=== PATIENT | female | born 1985 | race African-American/Black ===

== ENCOUNTER 2018-08-27 13:13 | Inpatient (IN) | payer SELFPAY ==
--- NOTE | 2018-08-27 13:40 | ER Document Report ---
ED Medical Screen (RME) - General Chief Complaint: Shortness Of Breath Stated Complaint: SHORTNESS OF BREATH Time Seen by Provider: 08/27/18 13:36 Notes: 32-year-old female patient reports having upper respiratory tract infection about 2-1/2 weeks ago. She is much better from that but does have a little bit of continued cough. She reports for the past week she has been having some exertional shortness of breath which is getting worse. Today she noted after walking that her heart rate went to 130. I have greeted and performed a rapid initial assessment of this patient. A comprehensive ED assessment and evaluation of the patient, analysis of test results and completion of the medical decision making process will be conducted by additional ED providers. TRAVEL OUTSIDE OF THE [place] IN LAST 30 DAYS: No - Related Data Allergies/Adverse Reactions: No Known Drug Allergies Allergy (Verified 08/27/18 13:15) Past Medical History - Social History Chew tobacco use (# tins/day): No Frequency of alcohol use: Social Drug Abuse: None Renal/ Medical History: Denies: Hx Peritoneal Dialysis Physical Exam - Vital signs Vitals: Temp Pulse Resp BP Pulse Ox 98.4 F 110 H 20 172/93 H 99 08/27/18 13:31 08/27/18 13:31 08/27/18 13:31 08/27/18 13:31 08/27/18 13:31 Course - Vital Signs Vital signs: Temp Pulse Resp BP Pulse Ox 98.4 F 110 H 20 172/93 H 99 08/27/18 13:31 08/27/18 13:31 08/27/18 13:31 08/27/18 13:31 08/27/18 13:31
--- NOTE | 2018-08-27 14:19 | RADIOLOGY REPORT (SQ) ---
EXAM DESCRIPTION: CHEST 2 VIEWS COMPLETED DATE/TIME: 08/27/2018 2:01 pm REASON FOR STUDY: URI, dyspnea on exertion COMPARISON: None. TECHNIQUE: Frontal and lateral radiographic views of the chest acquired. NUMBER OF VIEWS: Two view. LIMITATIONS: None. FINDINGS: LUNGS AND PLEURA: No opacities, masses or pneumothorax. No pleural effusion. MEDIASTINUM AND HILAR STRUCTURES: No masses or contour abnormalities. HEART AND VASCULAR STRUCTURES: Heart normal size. No evidence for failure. BONES: No acute findings. HARDWARE: None in the chest. OTHER: No other significant finding. IMPRESSION: NO SIGNIFICANT RADIOGRAPHIC FINDING IN THE CHEST. TECHNICAL DOCUMENTATION: JOB ID: [id number] [employer]- All Rights Reserved Reading location - IP/workstation name: [email or web address]
[2018-08-27 14:43] LABS: ABSOLUTE EOSINOPHILS # (AUTO) 0.1 10^3/uL (0.0-0.6); ABSOLUTE LYMPHOCYTES (AUTO) 2.8 10^3/uL (0.5-4.7); ABSOLUTE MONOCYTES (AUTO) 0.7 10^3/uL (0.1-1.4); ABSOLUTE NEUT (AUTO) 3.3 10^3/uL (1.7-8.2); BASOPHILS % (AUTO) 0.6 % (0-2); EOSINOPHILS % (AUTO) 1.6 % (0-6); HEMATOCRIT 40.8 % (36.0-47.0); HEMOGLOBIN 13.3 g/dL (12.0-15.5); LYMPHOCYTES % (AUTO) 40.8 % (13-45); MEAN CORPUSCULAR HEMOGLOBIN 25.3 pg (27.0-33.4); MEAN CORPUSCULAR HGB CONC 32.6 g/dL (32.0-36.0); MEAN CORPUSCULAR VOLUME 78 fl (80-97); MONOCYTES % (AUTO) 9.5 % (3-13); PLATELET COUNT 269 10^3/uL (150-450); RED BLOOD COUNT 5.25 10^6/uL (3.72-5.28); RED CELL DISTRIBUTION WIDTH 15.8 % (11.5-14.0); SEGMENTED NEUTROPHILS % (AUTO) 47.5 % (42-78); TOTAL CELLS COUNTED % (AUTO) 100 %; WHITE BLOOD COUNT 6.9 10^3/uL (4.0-10.5)
[2018-08-27 15:02] LABS: ALANINE AMINOTRANSFERASE 24 U/L (9-52); ALBUMIN 4.1 g/dL (3.5-5.0); ALKALINE PHOSPHATASE 81 U/L (38-126); ANION GAP 12 (5-19); ASPARTATE AMINO TRANSFERASE 24 U/L (14-36); BILIRUBIN,DIRECT 0.3 mg/dL (0.0-0.4); BILIRUBIN,TOTAL 0.4 mg/dL (0.2-1.3); BLOOD UREA NITROGEN 11 mg/dL (7-20); CALCIUM 9.8 mg/dL (8.4-10.2); CARBON DIOXIDE 24 mmol/L (22-30); CHLORIDE 107 mmol/L (98-107); CREATINE KINASE 42 U/L (30-135); GLUCOSE 114 mg/dL (75-110); POTASSIUM 4.2 mmol/L (3.6-5.0); SODIUM 142.9 mmol/L (137-145); TOTAL PROTEIN 8.4 g/dL (6.3-8.2)
[2018-08-27 15:10] LABS: CREATINE KINASE MB 0.34 ng/mL (<4.55)
[2018-08-27 15:11] LABS: TROPONIN I 0.061 ng/mL
[2018-08-27 15:21] LABS: APPEARANCE,URINE SLIGHTLY-CLOUDY; BILIRUBIN,URINE NEGATIVE (NEGATIVE); COLOR,URINE YELLOW; GLUCOSE, URINE NEGATIVE (NEGATIVE); KETONES,URINE NEGATIVE (NEGATIVE); LEUKOCYTE ESTERASE,URINE TRACE (NEGATIVE); NITRITE,URINE NEGATIVE (NEGATIVE); PROTEIN,URINE NEGATIVE (NEGATIVE); URINE SPECIFIC GRAVITY 1.026; UROBILINOGEN,URINE NEGATIVE mg/dL (<2.0)
[2018-08-27] MEDS ORDERED: HEPARIN SOD (PORCINE) 1,000 UNIT/ML 10 ML VIAL IV ONE (15:26)
[2018-08-27] MEDS ORDERED: HEPARIN SODIUM,PORCINE/D5W 25,000 UNIT/250 ML RTUINJ IV PRN (15:26)
--- NOTE | 2018-08-27 15:28 | RADIOLOGY REPORT (SQ) ---
EXAM DESCRIPTION: CTA CHEST COMPLETED DATE/TIME: 08/27/2018 3:19 pm REASON FOR STUDY: evaluate for PE COMPARISON: None. TECHNIQUE: CT scan of the chest performed using helical scanning technique with dynamic intravenous contrast injection. Images reviewed with lung, soft tissue and bone windows. Reconstructed coronal and sagittal MPR images reviewed. Additional 3 dimensional post-processing performed to develop Maximal Intensity Projection images (ME P). All images stored on PACS. All CT scanners at this facility use dose modulation, iterative reconstruction, and/or weight based d osing when appropriate to reduce radiation dose to as low as reasonably achievable (ALARA). [facility]: Dose Right [facility]: CareDose [facility]: Dose Right [facility]: Teradose 4D [facility]: [employer] CONTRAST TYPE AND DOSE: contrast/concentration: Isovue 350.00 mg/ml; Total Contrast Delivered: 89.0 ml; Total Saline Delivered: 92.0 ml Contrast bolus optimized for the pulmonary arteries. Not diagnostic for the aorta. RENAL FUNCTION: None required. The patient is less than 50 years old. RADIATION DOSE: CT Rad equipment meets quality standard of care and radiation dose reduction techniq ues were employed. CTDIvol: 31.2 - 39.7 mGy. DLP: 1156 mGy-cm. . LIMITATIONS: None. FINDINGS: LUNGS AND PLEURA: No masses, infiltrates, or pneumothorax. No pleural effusions or pleura l calcifications. AORTA AND GREAT VESSELS: No aneurysm. Contrast bolus not optimized for the aorta. HEART: No pericardial effusion. No significant coronary artery calcifications. PULMONARY ARTERIES: Filling defects in the 1st degree branches of both lower lobe pulmonary arteries. No central emboli. HILAR AND MEDIASTINAL STRUCTURES: No identified masses or abnormal nodes. HARDWARE: None in the chest. UPPER ABDOMEN: No significant findings. Limited exam. THYROID AND OTHER SOFT TISSUES: No masses. No adenopathy. BONES: No acute or significant finding. 3D MIPS: Confirm above findings. OTHER: No other significant finding. IMPRESSION: Positive for pulmonary emboli bilateral lower lobe pulmonary arteries. COMMENT: Pertinent findings on the imaging study reported as a CRITICAL RESULT to LANCE Rosas DO at15:25 on 08/27/2018. Category of Critical Result: Pulmonary emboli. Quality ID # [id number]: Final reports with documentation of one or more dose reduction techniques (e.g., Au tomated exposure control, adjustment of the mA and/or kV according to patient size, use of iterative reconstruction technique) TECHNICAL DOCUMENTATION: JOB ID: [id number] [employer]- All Rights Reserved Reading location - IP/workstation name: [email or web address]
[2018-08-27] MEDS ORDERED: ONDANSETRON HCL INJ/PF 4 MG/2 ML SDV IV PRN (15:55)
[2018-08-27] MEDS ORDERED: ACETAMINOPHEN 650 MG SUPP.RECT PR PRN (15:55)
[2018-08-27 15:56] LABS: INTERNATIONAL RATION (INR) 0.94; PROTHROMBIN TIME 13.1 SEC (11.4-15.4)
[2018-08-27] MEDS ORDERED: HEPARIN SOD (PORCINE) 1,000 UNIT/ML 10 ML VIAL IV PRN (16:00)
[2018-08-27] MEDS ORDERED: LORAZEPAM 1 MG TABLET PO PRN (16:00)
[2018-08-27] MEDS ORDERED: HYDRALAZINE HCL INJ/PF 20 MG/1 ML SDV IV PRN (16:08)
--- NOTE | 2018-08-27 16:11 | PDOC H&P ---
History of Present Illness Admission Date/PCP: 08/27/2018 Patient complains of: Shortness of breath and palpitations for more than a week History of Present Illness: GT MUÑOZ is a 32 year old female Social History Information Source: Patient Smoking Status: Never Smoker Frequency of Alcohol Use: Occasional Hx Recreational Drug Use: No Hx Prescription Drug Abuse: No - Advance Directive Resuscitation Status: Full Code Family History Parental Family History Reviewed: Yes - Father with hypertension Children Family History Reviewed: Yes Sibling(s) Family History Reviewed.: Yes Medication/Allergy Home Medications: No Home Medications 08/27/18 Allergies/Adverse Reactions: No Known Drug Allergies Allergy (Verified 08/27/18 13:15) Review of Systems Constitutional: PRESENT: weakness. ABSENT: fever(s), headache(s) Eyes: ABSENT: visual disturbances Ears: ABSENT: hearing changes Nose, Mouth, and Throat: ABSENT: sore throat Cardiovascular: PRESENT: palpitations, other - Chest discomfort Respiratory: PRESENT: dyspnea Neurological: PRESENT: dizziness Psychiatric: PRESENT: anxiety Physical Exam Vital Signs: Temp Pulse Resp BP Pulse Ox 98.4 F 110 H 17 161/114 H 100 08/27/18 13:31 08/27/18 13:31 08/27/18 15:01 08/27/18 15:01 08/27/18 15:01 Intake & Output 08/26/18 08/27/18 08/28/18 06:59 06:59 06:59 Weight 124.7 kg General appearance: PRESENT: obese, other - Patient is in moderate distress Head exam: PRESENT: atraumatic Eye exam: PRESENT: PERRLA Mouth exam: PRESENT: moist, tongue midline Neck exam: ABSENT: carotid bruit, JVD, lymphadenopathy, thyromegaly Respiratory exam: PRESENT: clear to auscultation najma, tachypnea. ABSENT: rales, rhonchi, wheezes Cardiovascular exam: PRESENT: tachycardia GI/Abdominal exam: PRESENT: normal bowel sounds, soft. ABSENT: distended, guarding, mass, organolmegaly, rebound, tenderness Extremities exam: PRESENT: full ROM. ABSENT: calf tenderness, clubbing, pedal edema Neurological exam: PRESENT: alert, awake, oriented to person, oriented to place, oriented to time, oriented to situation, CN II-XII grossly intact. ABSENT: motor sensory deficit Psychiatric exam: PRESENT: anxious, appropriate affect, normal mood. ABSENT: homicidal ideation, suicidal ideation Results Laboratory Results: 08/27/18 14:02 08/27/18 14:02 08/27/18 08/27/18 08/27/18 14:02 14:02 14:02 WBC 6.9 RBC 5.25 Hgb 13.3 Hct 40.8 MCV 78 L MCH 25.3 L MCHC 32.6 RDW 15.8 H Plt Count 269 Seg Neutrophils % 47.5 Lymphocytes % 40.8 Monocytes % 9.5 Eosinophils % 1.6 Basophils % 0.6 Absolute Neutrophils 3.3 Absolute Lymphocytes 2.8 Absolute Monocytes 0.7 Absolute Eosinophils 0.1 Absolute Basophils 0.0 Sodium 142.9 Potassium 4.2 Chloride 107 Carbon Dioxide 24 Anion Gap 12 BUN 11 Creatinine 0.70 Est GFR ( Amer) > 60 Est GFR (Non-Af Amer) > 60 Glucose 114 H Calcium 9.8 Total Bilirubin 0.4 AST 24 ALT 24 Alkaline Phosphatase 81 Total Protein 8.4 H Albumin 4.1 Serum HCG, Qual NEGATIVE Urine Color Urine Appearance Urine pH Ur Specific [place] Urine Protein Urine Glucose (UA) Urine Ketones Urine Blood Urine Nitrite Ur Leukocyte Esterase Urine WBC (Auto) Urine RBC (Auto) 08/27/18 15:00 WBC RBC Hgb Hct MCV MCH MCHC RDW Plt Count Seg Neutrophils % Lymphocytes % Monocytes % Eosinophils % Basophils % Absolute Neutrophils Absolute Lymphocytes Absolute Monocytes Absolute Eosinophils Absolute Basophils Sodium Potassium Chloride Carbon Dioxide Anion Gap BUN Creatinine Est GFR ( Amer) Est GFR (Non-Af Amer) Glucose Calcium Total Bilirubin AST ALT Alkaline Phosphatase Total Protein Albumin Serum HCG, Qual Urine Color YELLOW Urine Appearance SLIGHTLY-CLOUDY Urine pH 5.0 Ur Specific [place] 1.026 Urine Protein NEGATIVE Urine Glucose (UA) NEGATIVE Urine Ketones NEGATIVE Urine Blood SMALL H Urine Nitrite NEGATIVE Ur Leukocyte Esterase TRACE H Urine WBC (Auto) 1 Urine RBC (Auto) 2 08/27/18 08/27/18 14:02 14:02 Creatine Kinase 42 CK-MB (CK-2) 0.34 Troponin I 0.061 Impressions: Chest X-Ray 08/27/18 13:39 IMPRESSION: NO SIGNIFICANT RADIOGRAPHIC FINDING IN THE CHEST. Chest/Abdomen CTA 08/27/18 14:59 IMPRESSION: Positive for pulmonary emboli bilateral lower lobe pulmonary arteries. Assessment and Plan - Diagnosis (1) Pulmonary emboli Qualifiers: Chronicity: acute Is this a current diagnosis for this admission?: Yes Plan: 08/27/2018 patient is going to be admitted to [facility] as inpatient plan to start her on Xarelto 20 mg p.o. twice daily. Consultation with Dr. Casas was requested. Placed on oxygen 2 L nasal cannula. Plan to do the DVT studies. Order was placed for lupus anticoagulant and antiphospholipid antibody check. To do the labs tomorrow. Prophylaxis was started. Placed on SCDs. (2) Uncontrolled hypertension Is this a current diagnosis for this admission?: Yes Plan: 08/27/2018 patient's admission blood pressure is 172/90 3 repeat one is 116/1 1 4 with a heart rate of 124. To start her on lisinopril 10 mg daily and put her on hydralazine 10 mg IV every 6 as needed to keep the blood pressure especially systolic less than 150 sorry and diastolic less than 100. (3) Tachycardia Is this a current diagnosis for this admission?: Yes Plan: 08/27/2018 patient's heart rate in the right now is more than [address] her on metoprolol tartrate 50 mg p.o. twice daily and closely monitor the heart rate every 4 hours. Was placed on telemetry. (4) Obesity (BMI 30-39.9) Is this a current diagnosis for this admission?: No Plan: 08/27/2018-patient's BMI is more than 40 diet exercise weight loss lifestyle modifications are discussed with the patient dietary consult was requested.
[2018-08-27] MEDS ORDERED: LISINOPRIL 10 MG TABLET PO ONE (16:15)
--- NOTE | 2018-08-27 16:29 | ER Document Report ---
Entered by ALETHEA CHRISTINE SCRIBE 08/27/18 1527 Acting as scribe for:LANCE BAZAN DO ED General - General Chief Complaint: Shortness Of Breath Stated Complaint: SHORTNESS OF BREATH Time Seen by Provider: 08/27/18 13:36 Mode of Arrival: Ambulatory Information source: Patient Notes: Patient is a 32 year old female presenting to the emergency department co mplaining of shortness of breath onset 2.5 weeks ago. Patient states she was recently diagnosed with an URI and her symptoms from that have been improving however, she continues to have shortness of breath which is exacerbated with on exertion. She also complains of heart palpitations further stating she can feel her heart racing. She denies any recent travels, taking medications or a history of surgeries. Of significance, patient is currently on control. TRAVEL OUTSIDE OF THE [place] IN LAST 30 DAYS: No - Related Data Allergies/Adverse Reactions: No Known Drug Allergies Allergy (Verified 08/27/18 13:15) Past Medical History - General Information source: Patient - Social History Smoking Status: Never Smoker Chew tobacco use (# tins/day): No Frequency of alcohol use: Social Drug Abuse: None Family History: Reviewed & Not Pertinent Patient has suicidal ideation: No Patient has homicidal ideation: No Review of Systems - Review of Systems Constitutional: No symptoms reported EENT: No symptoms reported Cardiovascular: No symptoms reported Respiratory: See HPI Gastrointestinal: No symptoms reported Genitourinary: No symptoms reported Female Genitourinary: No symptoms reported Musculoskeletal: No symptoms reported Skin: No symptoms reported Hematologic/Lymphatic: No symptoms reported Neurological/Psychological: No symptoms reported -: Yes All other systems reviewed and negative Physical Exam - Vital signs Vitals: Temp Pulse Resp BP Pulse Ox 98.4 F 110 H 20 172/93 H 99 08/27/18 13:31 08/27/18 13:31 08/27/18 13:31 08/27/18 13:31 08/27/18 13:31 - Notes Notes: GENERAL: Alert,pleasant, interacts well. Mild respiratory distress. HEAD: Normocephalic, atraumatic. EYES: Pupils equal, round, and reactive to light. Extraocular movements intact. ENT: Oral mucosa moist, tongue midline. NECK: Full range of motion. Supple. Trachea midline. LUNGS: Tachypneic. Clear to auscultation bilaterally, no wheezes, rales, or rhonchi. Mild respiratory distress. HEART: Tachycardic. No murmurs, gallops, or rubs. ABDOMEN: Soft, non-tender. Non-distended. Bowel sounds present in all 4 quadra nts. No guarding, rigidity, or rebound. EXTREMITIES: Moves all 4 extremities spontaneously. No edema. NEUROLOGICAL: Alert and oriented x3. Normal speech. No edema. PSYCH: Normal affect, normal mood. SKIN: Warm, dry, normal turgor. No rashes or lesions noted. Course - Re-evaluation Re-evalutation: 08/27/18 15:27 Dr. Blankenship accepts patient for admission. 08/27/18 16:26 Patient is a very pleasant 32-year-old female who presents with difficulty breathing and tachycardia. Patient has no past medical history. 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 Patient has no family history of clotting disorder or personal history that she is aware. She does use control. D- dimer is 3.[address] is showing bilateral pulmonary emboli. Given the patient's clinical presentation and continuous symptoms, will start heparin drip and admit for further evaluation. Patient is agreeable to this plan and grateful for care. Stable at the time of admission to the hospital service. - Vital Signs Vital signs: Temp Pulse Resp BP Pulse Ox 98.4 F 110 H 13 148/100 H 98 08/27/18 13:31 08/27/18 13:31 08/27/18 16:18 08/27/18 16:18 08/27/18 16:18 - Laboratory Result Diagrams: 08/27/18 14:02 08/27/18 14:02 Laboratory results interpreted by me: 08/27/18 08/27/18 08/27/18 14:02 14:02 14:02 MCV 78 L MCH 25.3 L RDW 15.8 H D-Dimer 3.20 H Glucose 114 H Total Protein 8.4 H Urine Blood Ur Leukocyte Esterase 08/27/18 15:00 MCV MCH RDW D-Dimer Glucose Total Protein Urine Blood SMALL H Ur Leukocyte Esterase TRACE H Critical Care Note - Critical Care Note Total time excluding time spent on procedures (mins): 35 - Evaluation and management of difficulty breathing, multiple re-evaluations, diagnosis of pulmonary embolus, coordination of admission, counseling of patient Discharge - Discharge Clinical Impression: Respiratory distress Pulmonary emboli Qualifiers: Pulmonary embolism type: unspecified Chronicity: acute Acute cor pulmonale presence: without acute cor pulmonale Qualified Code(s): I26.99 - Other pulmonary embolism without acute cor pulmonale Condition: Stable Disposition: ADMITTED INPATIENT Admitting Provider: Hospitalist - [facility] Unit Admitted: IMCU I personally performed the services described in the documentation, reviewed and edited the documentation which was dictated to the scribe in my presence, and it accurately records my words and actions.
[2018-08-27] MEDS ORDERED: RIVAROXABAN 10 MG TABLET PO SCH (18:00)
[2018-08-27] MEDS: RIVAROXABAN 15 MG TABLET PO SCH (18:48)
[2018-08-27 18:50] LABS: URINE AMPHETAMINES SCREEN NEGATIVE; URINE BARBITURATES SCREEN NEGATIVE; URINE BENZODIAZEPINES SCREEN NEGATIVE; URINE COCAINE SCREEN NEGATIVE; URINE MARIJUANA (THC) SCREEN NEGATIVE; URINE METHADONE SCREEN NEGATIVE; URINE PHENCYCLIDINE SCREEN NEGATIVE
[2018-08-27] MEDS ORDERED: TEMAZEPAM 15 MG CAPSULE PO SCH (22:00)
[2018-08-27] MEDS: METOPROLOL TARTRATE 50 MG TABLET PO SCH (22:19)
--- NOTE | 2018-08-27 23:26 | EKG REPORT ---
SEVERITY:- ABNORMAL ECG - SINUS TACHYCARDIA NONSPECIFIC T ABNORMALITIES, INFERIOR LEADS : Confirmed by: Josie Samuel 27-Aug-2018 23:25:45
--- NOTE | 2018-08-28 00:39 | RADIOLOGY REPORT (SQ) ---
EXAM DESCRIPTION: US EXTREMITY VEINS BILATERAL COMPLETED DATE/TME: 08/27/2018 00:00 CLINICAL HISTORY: 32 years Female BILAT PULM EMBOLI COMPARISON: None. TECHNIQUE: Duplex imaging performed to evaluate bilateral lower extremity venous structures. Compression imaging and augmentation imaging performed. The common femoral, superficial femoral, popliteal, greater saphenous and posterior tibial veins were examined. FINDINGS: No thrombus is identified in the bilateral lower extremity venous structures. IMPRESSION: No DVT is identified in the bilateral lower extremities.
[2018-08-28 03:48] LABS: HEMATOCRIT 37.8 % (36.0-47.0); HEMOGLOBIN 12.8 g/dL (12.0-15.5); MEAN CORPUSCULAR VOLUME 76 fl (80-97); PLATELET COUNT 229 10^3/uL (150-450); RED BLOOD COUNT 4.95 10^6/uL (3.72-5.28); RED CELL DISTRIBUTION WIDTH 15.7 % (11.5-14.0); WHITE BLOOD COUNT 7.3 10^3/uL (4.0-10.5)
[2018-08-28 04:03] LABS: ALANINE AMINOTRANSFERASE 19 U/L (9-52); ALBUMIN 3.6 g/dL (3.5-5.0); ALKALINE PHOSPHATASE 76 U/L (38-126); ANION GAP 12 (5-19); ASPARTATE AMINO TRANSFERASE 22 U/L (14-36); BILIRUBIN,DIRECT 0.3 mg/dL (0.0-0.4); BILIRUBIN,TOTAL 0.5 mg/dL (0.2-1.3); BLOOD UREA NITROGEN 11 mg/dL (7-20); CALCIUM 9.5 mg/dL (8.4-10.2); CARBON DIOXIDE 20 mmol/L (22-30); CHLORIDE 107 mmol/L (98-107); CHOLESTEROL 140.01 mg/dL (0-200); CREATINE KINASE 39 U/L (30-135); GLUCOSE 108 mg/dL (75-110); POTASSIUM 4.4 mmol/L (3.6-5.0); SODIUM 138.8 mmol/L (137-145); TOTAL PROTEIN 7.7 g/dL (6.3-8.2); TRIGLYCERIDES 157 mg/dL (<150)
[2018-08-28 04:14] LABS: DIRECT LDL 77 mg/dL (<100); TROPONIN I 0.028 ng/mL
[2018-08-28 04:18] LABS: VLDL CHOLESTEROL 31.4 mg/dL (10-31)
--- NOTE | 2018-08-28 08:00 | PDOC CONSULTATION ---
Consultation Consult Date: 08/28/18 Consult reason:: Hematology/Oncology consultation was requested for patient with a new Pulmonary Embolism. 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 This is finally improving, but she now has progressive dyspnea over 1 week. She felt more winded after minor exertion. She tool her vital signs and found elevated BP and heart rate. She denies any significant pain in her chest. No leg swelling. She has been on oral contr aceptives for about a year. She denies any recent surgeries, periods or immobility, or family history of blood clots. However, she was found in the ED to have a pulmonary embolism. She was started on Xarelto and today, she states that she is feeling much better. She is anxious for discharge to resume her classwork. Past Medical History Cardiac Medical History: Reports: None Pulmonary Medical History: Reports: None EENT Medical History: Reports: None Neurological Medical History: Reports: None Endocrine Medical History: Reports: Gestational Diabetes Renal/ Medical History: Reports: None Malignancy Medical History: Reports: None GI Medical History: Reports: None Musculoskeltal Medical History: Reports: None Psychiatric Medical History: Reports: None Hematology: Reports: None Infectious Medical History: Reports: None Past Surgical History Past Surgical History: Reports: None Social History Information Source: Patient 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 Mother alive with DM. PGM with DM Children Family History Reviewed: Yes Sibling(s) Family History Reviewed.: Yes Medication/Allergy Home Medications: No Home Medications 08/27/18 Allergies/Adverse Reactions: No Known Drug Allergies Allergy (Verified 08/27/18 13:15) Review of Systems Constitutional: ABSENT: fever(s), headache(s) Eyes: ABSENT: visual disturbances Ears: ABSENT: hearing changes Nose, Mouth, and Throat: ABSENT: sore throat Cardiovascular: PRESENT: dyspnea on exertion, other - rapid HR. ABSENT: chest pain Respiratory: PRESENT: cough, dyspnea Gastrointestinal: ABSENT: constipation, nausea, vomiting Genitourinary: ABSENT: difficulty urinating Musculoskeletal: ABSENT: back pain Integumentary: ABSENT: rash Neurological: ABSENT: dizziness, weakness Hematologic/Lymphatic: ABSENT: easy bleeding Physical Exam Vital Signs: Temp Pulse Resp BP Pulse Ox 98.7 F 73 20 119/71 100 08/28/18 03:44 08/28/18 03:44 08/28/18 03:44 08/28/18 03:44 08/28/18 03:44 Intake & Output 08/27/18 08/28/18 08/29/18 06:59 06:59 06:59 Intake Total 400 Balance 400 Weight 124.4 kg Exam: Overweight, female. Head exam: PRESENT: atraumatic, normocephalic Eye exam: PRESENT: EOMI Mouth exam: PRESENT: moist, tongue midline Neck exam: ABSENT: lymphadenopathy, tenderness Respiratory exam: PRESENT: clear to auscultation najma, unlabored Cardiovascular exam: PRESENT: RRR GI/Abdominal exam: PRESENT: soft. ABSENT: organolmegaly, tenderness Extremities exam: ABSENT: pedal edema Musculoskeletal exam: PRESENT: normal inspection Neurological exam: PRESENT: alert, awake, oriented to person, oriented to place, oriented to time, oriented to situation Psychiatric exam: PRESENT: appropriate affect Skin exam: PRESENT: normal color Results Laboratory Results: 08/28/18 03:40 08/28/18 03:40 08/27/18 08/27/18 08/27/18 14:02 14:02 14:02 WBC 6.9 RBC 5.25 Hgb 13.3 Hct 40.8 MCV 78 L MCH 25.3 L MCHC 32.6 RDW 15.8 H Plt Count 269 Seg Neutrophils % 47.5 Lymphocytes % 40.8 Monocytes % 9.5 Eosinophils % 1.6 Basophils % 0.6 Absolute Neutrophils 3.3 Absolute Lymphocytes 2.8 Absolute Monocytes 0.7 Absolute Eosinophils 0.1 Absolute Basophils 0.0 Sodium 142.9 Potassium 4.2 Chloride 107 Carbon Dioxide 24 Anion Gap 12 BUN 11 Creatinine 0.70 Est GFR ( Amer) > 60 Est GFR (Non-Af Amer) > 60 Glucose 114 H Calcium 9.8 Magnesium Total Bilirubin 0.4 AST 24 ALT 24 Alkaline Phosphatase 81 Total Protein 8.4 H Albumin 4.1 Triglycerides Cholesterol LDL Cholesterol Direct VLDL Cholesterol HDL Cholesterol TSH Serum HCG, Qual NEGATIVE Urine Color Urine Appearance Urine pH Ur Specific [place] Urine Protein Urine Glucose (UA) Urine Ketones Urine Blood Urine Nitrite Ur Leukocyte Esterase Urine WBC (Auto) Urine RBC (Auto) 08/27/18 08/28/18 08/28/18 15:00 03:40 03:40 WBC 7.3 RBC 4.95 Hgb 12.8 Hct 37.8 MCV 76 L MCH 26.0 L MCHC 34.0 RDW 15.7 H Plt Count 229 Seg Neutrophils % Lymphocytes % Monocytes % Eosinophils % Basophils % Absolute Neutrophils Absolute Lymphocytes Absolute Monocytes Absolute Eosinophils Absolute Basophils Sodium 138.8 Potassium 4.4 Chloride 107 Carbon Dioxide 20 L Anion Gap 12 BUN 11 Creatinine 0.68 Est GFR ( Amer) > 60 Est GFR (Non-Af Amer) > 60 Glucose 108 Calcium 9.5 Magnesium 1.9 Total Bilirubin 0.5 AST 22 ALT 19 Alkaline Phosphatase 76 Total Protein 7.7 Albumin 3.6 Triglycerides 157 H Cholesterol 140.01 LDL Cholesterol Direct 77 VLDL Cholesterol 31.4 H HDL Cholesterol 44 TSH Serum HCG, Qual Urine Color YELLOW Urine Appearance SLIGHTLY-CLOUDY Urine pH 5.0 Ur Specific [place] 1.026 Urine Protein NEGATIVE Urine Glucose (UA) NEGATIVE Urine Ketones NEGATIVE Urine Blood SMALL H Urine Nitrite NEGATIVE Ur Leukocyte Esterase TRACE H Urine WBC (Auto) 1 Urine RBC (Auto) 2 08/28/18 03:40 WBC RBC Hgb Hct MCV MCH MCHC RDW Plt Count Seg Neutrophils % Lymphocytes % Monocytes % Eosinophils % Basophils % Absolute Neutrophils Absolute Lymphocytes Absolute Monocytes Absolute Eosinophils Absolute Basophils Sodium Potassium Chloride Carbon Dioxide Anion Gap BUN Creatinine Est GFR ( Amer) Est GFR (Non-Af Amer) Glucose Calcium Magnesium Total Bilirubin AST ALT Alkaline Phosphatase Total Protein Albumin Triglycerides Cholesterol LDL Cholesterol Direct VLDL Cholesterol HDL Cholesterol TSH 1.89 Serum HCG, Qual Urine Color Urine Appearance Urine pH Ur Specific [place] Urine Protein Urine Glucose (UA) Urine Ketones Urine Blood Urine Nitrite Ur Leukocyte Esterase Urine WBC (Auto) Urine RBC (Auto) 08/27/18 08/27/18 08/27/18 14:02 14:02 21:38 Creatine Kinase 42 35 CK-MB (CK-2) 0.34 Troponin I 0.061 NT-Pro-B Natriuret Pep 08/27/18 08/28/18 08/28/18 21:38 03:40 03:40 Creatine Kinase 39 CK-MB (CK-2) Troponin I 0.053 0.028 NT-Pro-B Natriuret Pep 625 H Impressions: Venous Doppler Study 08/27/18 00:00 IMPRESSION: No DVT is identified in the bilateral lower extremities. Chest X-Ray 08/27/18 13:39 IMPRESSION: NO SIGNIFICANT RADIOGRAPHIC FINDING IN THE CHEST. Chest/Abdomen CTA 08/27/18 14:59 IMPRESSION: Positive for pulmonary emboli bilateral lower lobe pulmonary arteries. Assessment & Plan - Diagnosis (1) Pulmonary emboli Qualifiers: Chronicity: acute Is this a current diagnosis for this admission?: Yes Plan: Currently doing well on Xarelto. I agree with continuing this for 3-6 months. I agree with testing for Lupus anticoagulant and antiphospholipid Ab as this may change treatment recommendations. Otherwise, it is most likely that this was caused by the oral contraceptives. She understands that she should stop these and find alternatives. I can help arranging Xarelto for the patient if insurance is a problem. Please let me know. (2) Uncontrolled hypertension Is this a current diagnosis for this admission?: Yes Plan: Agree with current medications. She does not currently have a PCP, but will need one. - Plan Summary Plan Summary: Thank you for this consultation. I will be happy to follow her as outpatient in the office.
[2018-08-28] MEDS: RIVAROXABAN 15 MG TABLET PO SCH (09:48)
[2018-08-28] MEDS: METOPROLOL TARTRATE 50 MG TABLET PO SCH ×2 (09:48→09:52)
[2018-08-28] MEDS ORDERED: LISINOPRIL 10 MG TABLET PO SCH (10:00)
[2018-08-28 12:24] VITALS: BP 145/107
--- NOTE | 2018-08-28 12:36 | PDOC DISCHARGE SUMMARY ---
General - Admit/Disc Date/PCP Admission Date/Primary Care Provider: 08/27/18 16:29 Discharge Date: 08/28/18 - Discharge Diagnosis (1) Pulmonary emboli Is this a current diagnosis for this admission?: Yes Summary: 08/27/2018 patient is going to be admitted to [facility] as inpatient plan to start her on Xarelto 20 mg p.o. twice daily. Consultation with Dr. Casas was requested. Placed on oxygen 2 L nasal cannula. Plan to do the DVT studies. Order was placed for lupus anticoagulant and antiphospholipid antibody check. To do the labs tomorrow. Prophylaxis was started. Placed on SCDs. 08/28/2018-patient was admitted with bilateral pulmonary embolism on examination the patient is tachycardic anxious and his shortness of breath. She was started on Xarelto and hematology consult was done patient is going home on Xarelto 15 mg p.o. twice daily after 4 weeks of therapy we can switch her to 20 mg daily. Patient was advised to follow-up with Dr. Nelson for further management. (2) Uncontrolled hypertension Is this a current diagnosis for this admission?: Yes Summary: 08/27/2018 patient's admission blood pressure is 172/93 repeat one is 116/1 1 4 with a heart rate of 124. To start her on lisinopril 10 mg daily and put her on hydralazine 10 mg IV every 6 as needed to keep the blood pressure especially s ystolic less than 150 sorry and diastolic less than 100. 08/28/2018-patient's blood pressure was elevated at the time of admission started on hydralazine IV every 6 as needed and lisinopril 10 mg p.o. daily blood pressure today is 136/84 well-controlled patient was given prescription for lisinopril 10 mg p.o. daily for 1 month patient was strongly advised to follow- up with primary care physician in 5-7 days. (3) Tachycardia Is this a current diagnosis for this admission?: Yes Summary: 08/27/2018 patient's heart rate in the right now is more than [address] her on metoprolol tartrate 50 mg p.o. twice daily and closely monitor the heart rate every 4 hours. Was placed on telemetry. 08/28/2018-patient's heart rate today is 81 tachycardia is resolved. Tachycardia most likely secondary to anxiety/bilateral pulmonary embolism that was diagnosed in the ER. (4) Obesity (BMI 30-39.9) Is this a current diagnosis for this admission?: No - Additional Information Resuscitation Status: Full Code Discharge Diet: Cardiac Discharge Activity: Activity As Tolerated Prescriptions: Lisinopril [Prinivil 10 mg Tablet] 10 mg PO DAILY #30 tablet Rivaroxaban [Xarelto 15 mg Tablet] 15 mg PO BID #60 tablet Home Medications: Lisinopril [Prinivil 10 mg Tablet] 10 mg PO DAILY #30 tablet 08/28/18 Rivaroxaban [Xarelto 15 mg Tablet] 15 mg PO BID #60 tablet 08/28/18 History of Present Illness History of Present Illness: GT MUÑOZ is a 32 year old female Physical Exam Vital Signs: Temp Pulse Resp BP Pulse Ox 98.3 F 81 20 145/107 H 97 08/28/18 12:22 08/28/18 12:22 08/28/18 12:22 08/28/18 12:22 08/28/18 12:22 Intake & Output 08/27/18 08/28/18 08/29/18 06:59 06:59 06:59 Intake Total 400 500 Output Total 850 Balance 400 -350 Weight 124.4 kg General appearance: PRESENT: no acute distress Head exam: PRESENT: atraumatic Eye exam: PRESENT: PERRLA Mouth exam: PRESENT: moist, tongue midline Neck exam: ABSENT: carotid bruit, JVD, lymphadenopathy, thyromegaly Respiratory exam: PRESENT: clear to auscultation najma. ABSENT: rales, rhonchi, wheezes Cardiovascular exam: PRESENT: RRR. ABSENT: diastolic murmur, rubs, systolic murmur GI/Abdominal exam: PRESENT: normal bowel sounds, soft. ABSENT: distended, guarding, mass, organolmegaly, rebound, tenderness Neurological exam: PRESENT: alert, awake, oriented to person, oriented to place, oriented to time, oriented to situation, CN II-XII grossly intact. ABSENT: motor sensory deficit Psychiatric exam: PRESENT: appropriate affect, normal mood. ABSENT: homicidal ideation, suicidal ideation Results Laboratory Results: 08/28/18 03:40 08/28/18 03:40 08/27/18 08/27/18 08/27/18 14:02 14:02 14:02 WBC 6.9 RBC 5.25 Hgb 13.3 Hct 40.8 MCV 78 L MCH 25.3 L MCHC 32.6 RDW 15.8 H Plt Count 269 Seg Neutrophils % 47.5 Lymphocytes % 40.8 Monocytes % 9.5 Eosinophils % 1.6 Basophils % 0.6 Absolute Neutrophils 3.3 Absolute Lymphocytes 2.8 Absolute Monocytes 0.7 Absolute Eosinophils 0.1 Absolute Basophils 0.0 Sodium 142.9 Potassium 4.2 Chloride 107 Carbon Dioxide 24 Anion Gap 12 BUN 11 Creatinine 0.70 Est GFR ( Amer) > 60 Est GFR (Non-Af Amer) > 60 Glucose 114 H Calcium 9.8 Magnesium Total Bilirubin 0.4 AST 24 ALT 24 Alkaline Phosphatase 81 Total Protein 8.4 H Albumin 4.1 Triglycerides Cholesterol LDL Cholesterol Direct VLDL Cholesterol HDL Cholesterol TSH Serum HCG, Qual NEGATIVE Urine Color Urine Appearance Urine pH Ur Specific [place] Urine Protein Urine Glucose (UA) Urine Ketones Urine Blood Urine Nitrite Ur Leukocyte Esterase Urine WBC (Auto) Urine RBC (Auto) 08/27/18 08/28/18 08/28/18 15:00 03:40 03:40 WBC 7.3 RBC 4.95 Hgb 12.8 Hct 37.8 MCV 76 L MCH 26.0 L MCHC 34.0 RDW 15.7 H Plt Count 229 Seg Neutrophils % Lymphocytes % Monocytes % Eosinophils % Basophils % Absolute Neutrophils Absolute Lymphocytes Absolute Monocytes Absolute Eosinophils Absolute Basophils Sodium 138.8 Potassium 4.4 Chloride 107 Carbon Dioxide 20 L Anion Gap 12 BUN 11 Creatinine 0.68 Est GFR ( Amer) > 60 Est GFR (Non-Af Amer) > 60 Glucose 108 Calcium 9.5 Magnesium 1.9 Total Bilirubin 0.5 AST 22 ALT 19 Alkaline Phosphatase 76 Total Protein 7.7 Albumin 3.6 Triglycerides 157 H Cholesterol 140.01 LDL Cholesterol Direct 77 VLDL Cholesterol 31.4 H HDL Cholesterol 44 TSH Serum HCG, Qual Urine Color YELLOW Urine Appearance SLIGHTLY-CLOUDY Urine pH 5.0 Ur Specific [place] 1.026 Urine Protein NEGATIVE Urine Glucose (UA) NEGATIVE Urine Ketones NEGATIVE Urine Blood SMALL H Urine Nitrite NEGATIVE Ur Leukocyte Esterase TRACE H Urine WBC (Auto) 1 Urine RBC (Auto) 2 08/28/18 03:40 WBC RBC Hgb Hct MCV MCH MCHC RDW Plt Count Seg Neutrophils % Lymphocytes % Monocytes % Eosinophils % Basophils % Absolute Neutrophils Absolute Lymphocytes Absolute Monocytes Absolute Eosinophils Absolute Basophils Sodium Potassium Chloride Carbon Dioxide Anion Gap BUN Creatinine Est GFR ( Amer) Est GFR (Non-Af Amer) Glucose Calcium Magnesium Total Bilirubin AST ALT Alkaline Phosphatase Total Protein Albumin Triglycerides Cholesterol LDL Cholesterol Direct VLDL Cholesterol HDL Cholesterol TSH 1.89 Serum HCG, Qual Urine Color Urine Appearance Urine pH Ur Specific [place] Urine Protein Urine Glucose (UA) Urine Ketones Urine Blood Urine Nitrite Ur Leukocyte Esterase Urine WBC (Auto) Urine RBC (Auto) 08/27/18 08/27/18 08/27/18 14:02 14:02 21:38 Creatine Kinase 42 35 CK-MB (CK-2) 0.34 Troponin I 0.061 NT-Pro-B Natriuret Pep 08/27/18 08/28/18 08/28/18 21:38 03:40 03:40 Creatine Kinase 39 CK-MB (CK-2) Troponin I 0.053 0.028 NT-Pro-B Natriuret Pep 625 H 08/28/18 08/28/18 10:15 10:15 Creatine Kinase 32 CK-MB (CK-2) Troponin I 0.021 NT-Pro-B Natriuret Pep Impressions: Venous Doppler Study 08/27/18 00:00 IMPRESSION: No DVT is identified in the bilateral lower extremities. Chest X-Ray 08/27/18 13:39 IMPRESSION: NO SIGNIFICANT RADIOGRAPHIC FINDING IN THE CHEST. Chest/Abdomen CTA 08/27/18 14:59 IMPRESSION: Positive for pulmonary emboli bilateral lower lobe pulmonary arteries. Qualifiers - * PATIENT BEING DISCHARGED WITH ANY OF THE FOLLOWING DIAGNOSIS: No VTE patient discharged on overlapping Therapy?: No
[2018-08-30 09:38] LABS: DILUTE RUSSELL VIPOR VENOM 79.9 sec (0.0-47.0); DRVVT CONFIRM 1.3 ratio (0.8-1.2); DRVVT MIX 67.1 sec (0.0-47.0); PTT-LA 39.8 sec (0.0-51.9); THROMBIN TIME 17.9 sec (0.0-23.0)
[2018-08-30 12:48] LABS: LUPUS PANEL INTERPRETATION Comment: (.)
[2018-09-19] MEDS ORDERED: RIVAROXABAN 10 MG TABLET PO SCH (10:00)
== END 2018-08-28 14:31 | disposition home or self-care (01) | DRG 176 ==
LOC: ER 13:13 → EH 16:29 → 3S 18:16
PROVIDERS: ADMIT Internal Medicine; ATTEND Internal Medicine
DX: I26.99 Other pulmonary embolism without acute cor pulmonale (principal); Z68.41 Body mass index [BMI] 40.0-44.9, adult; E66.9 Obesity, unspecified; I10 Essential (primary) hypertension; R00.0 Tachycardia, unspecified; Z82.49 Family history of ischemic heart disease and other diseases of the circulatory system
CPT/HCPCS: 36415; 71046; 71275; 80053; 80061; 80307; 81001; 82550; 82553; 83520; 83735; 83880; 84443; 84484; 84703; 85025; 85027; 85379; 85597; 85598; 85610; 85613; 85730; 85732; 86146; 86147; 86148; 86225; 86235; 86849; 93005; 93010; 93970; 96365; 96376; 99291; J1644; J3490